=== PATIENT | male | born 1995 | race African-American/Black ===

== ENCOUNTER 2017-05-20 10:37 | Emergency (ER) | payer MEDICAID, OTHER ==
[2017-05-20] MEDS ORDERED: LIDOCAINE HCL 1% 20ML VIAL (Pyxis) INJ ONE (11:55)
[2017-05-20] MEDS ORDERED: TETANUS, DIPHTHERIA, PERTUSSIS VAC/PF 0.5ML (>7YR OLD) IM ONE (12:15)
[2017-05-20] MEDS ORDERED: CEFAZOLIN 1000MG PREMIX 50 ML IV ONE (12:15)
[2017-05-20] MEDS ORDERED: ACETAMINOPHEN WITH CODEINE 300/30MG TABLET PO ONE (13:30)
[2017-05-20] MEDS ORDERED: BACITRACIN ZINC OINT UDPKT TOP ONE (14:45)
[2017-05-20 16:00] VITALS: BP 121/80
== END 2017-05-20 17:42 | disposition home or self-care (01) ==
LOC: ER 10:37
DX: S01.81XA Laceration without foreign body of other part of head, initial encounter (principal); S81.011A Laceration without foreign body, right knee, initial encounter; S62.635A Displaced fracture of distal phalanx of left ring finger, initial encounter for closed fracture; S21.232A Puncture wound without foreign body of left back wall of thorax without penetration into thoracic cavity, initial encounter; M79.645 Pain in left finger(s); M25.562 Pain in left knee; M79.89 Other specified soft tissue disorders; R03.0 Elevated blood-pressure reading, without diagnosis of hypertension; R91.8 Other nonspecific abnormal finding of lung field; Y00.XXXA Assault by blunt object, initial encounter; X99.1XXA Assault by knife, initial encounter; Y93.89 Activity, other specified; Z65.4 Victim of crime and terrorism; Y92.89 Other specified places as the place of occurrence of the external cause; Z23 Encounter for immunization
CPT/HCPCS: 12002; 12013; 70450; 70486; 71010; 73130; 73562; 90471; 90715; 96365; 99284; J0690; J3490; Z7610; 13121